=== PATIENT | male | born 1980 | race Caucasian/White ===

== ENCOUNTER 2017-10-01 18:08 | Emergency (ER) | payer SELFPAY ==
[~2017-10-01] VITALS: Ht 188 cm; Wt 85.0 kg
[~2017-10-01 18:08] MED LIST: CLIN150 PO
[2017-10-01 18:18] VITALS: BP 120/83; PULSE 82; RESP 18; TEMP 99.1; O2SAT 98
[2017-10-01] MEDS ORDERED: CIPR-9 PO (19:36)
[2017-10-01] MEDS ORDERED: PENI500T PO (19:43)
[2017-10-01] MEDS ORDERED: PENICILLIN V POTASSIUM 500 MG TAB PO ONE (19:45)
--- NOTE | 2017-10-01 19:45 | PD ---
HPI Chief Complaint: ENT Complaint Time Seen by Provider: 19:36 Travel History International Travel<30 days: No Contact w/Intl Traveler<30days: No Traveled to known affect area: No History of Present Illness HPI 37-year-old male presents to the emergency department for evaluation of sore throat for 2 days. He reports intermittent fevers. He took Tylenol just prior to arrival. Patient states pain is 7/10, throbbing. No radiation. Has no medical problems and takes no prescribed medications. Mild severity. PFSH Past Medical History Medical History: Denies Significant Hx Anxiety: No Depression: No Cancer: No Cardiovascular Problems: No Chemotherapy: No Diminished Hearing: No Endocrine: No Genitourinary: No Immune Disorder: No Musculoskeletal: No Neurologic: No Psychiatric: No Respiratory: No Radiation Therapy: No Tetanus Vaccination: Unknown Influenza Vaccination: No Past Surgical History Surgical History: No Previous Surgery AICD: No Joint Replacement: No Pacemaker: No Social History Alcohol Use: Yes Tobacco Use: Yes (PACK) Substance Use: No Allergies-Medications (Allergen,Severity, Reaction): Coded Allergies: Sulfa (Sulfonamide Antibiotics) (Unverified Allergy, Severe, 12/30/16) Reported Meds & Prescriptions Reported Meds & Active Scripts Active Reported Cipro (Ciprofloxacin HCl) 500 Mg Tab 500 Mg PO BID Review of Systems Except as stated in HPI: all other systems reviewed are Neg Physical Exam Narrative GENERAL: Well-nourished, well-developed male patient, afebrile. SKIN: Focused skin assessment warm/dry. HEAD: Normocephalic. Atraumatic. ENT: Mucosa pink and moist. Bilateral tonsils are erythematous with exudate. No uvular edema. No uvular, palatal, or tonsillar deviation. Airway patent. Nasal turbinates appear normal without nasal blood, purulent drainage or septal hematoma. Bilateral tympanic membranes clear without erythema or perforation. EYES: No scleral icterus. No injection or drainage. NECK: Supple, trachea midline. No JVD or lymphadenopathy. CARDIOVASCULAR: Regular rate and rhythm without murmurs, gallops, or rubs. RESPIRATORY: Breath sounds equal bilaterally. No accessory muscle use. Lung sounds are clear to auscultation. GASTROINTESTINAL: Abdomen soft, non-tender, nondistended. MUSCULOSKELETAL: No cyanosis, or edema. BACK: Nontender without obvious deformity. No CVA tenderness. Data Data Last Documented VS Vital Signs Date Time Temp Pulse Resp B/P (MAP) Pulse Ox O2 Delivery O2 Flow Rate FiO2 10/01/17 18:18 99.1 82 18 120/83 (95) 98 MDM Medical Decision Making Medical Screen Exam Complete: Yes Emergency Medical Condition: Yes Medical Record Reviewed: Yes Differential Diagnosis Strep pharyngitis versus viral pharyngitis versus URI versus mononucleosis Narrative Course 37-year-old male presents to the emergency department for evaluation of sore throat for 2 days. Physical exam shows exudates on bilateral tonsils. He will be started on Pen-Vee K. He is instructed to do warm salt water gargles, Tylenol/Motrin [id number] as needed. The patient was discharged in stable condition with instructions, including return instructions and follow up instructions. Diagnosis Primary Impression: Exudative pharyngitis Referrals: Primary Care Physician call for appointment Patient Instructions: General Instructions, Pharyngitis (ED) Departure Forms: Tests/Procedures, Work Release Enter return to work date: October 04, 2017 Additional Instructions: Take antibiotic as directed until gone. Warm salt water gargles as needed for sore throat. [id number] Tylenol/ibuprofen as needed for pain/fever. Follow-up with a primary care physician. Return to the emergency department for any acute worsening of symptoms. Med/Other Pt SpecificInfo: Prescription(s) given Scripts Penicillin V Potassium (Penicillin V Potassium) 500 Mg Tab 500 MG PO Q6H for Infection for 10 Days, #40 TAB 0 Refills Prov: Lanie Steel 10/01/17 Disposition: 01 DISCHARGE HOME Condition: Stable Lanie Steel October 01, 2017 19:45
== END 2017-10-01 20:06 | disposition home or self-care (01) ==
LOC: NEPK 18:08
DX: J02.9 Acute pharyngitis, unspecified (principal); Z72.0 Tobacco use
CPT/HCPCS: 99283